=== PATIENT | male | born 1985 | race Hispanic/Latino ===

== ENCOUNTER 2019-11-26 15:57 | Emergency (ER) | payer BC ==
[2019-11-26] MEDS ORDERED: LORAZEPAM 0.5 MG TABLET ONE (17:29)
== END 2019-11-26 19:01 ==
LOC: EDH 15:57
DX: U07.1 COVID-19 (principal); F41.1 Generalized anxiety disorder

== ENCOUNTER → 2023-07-16 | Outpatient (CLI) | payer OTHER | END | disposition home or self-care (01) | LOC: OIH 12:47 | PROVIDERS: ATTEND Internal Medicine Cardiovascular Disease | DX: Z13.6 Encounter for screening for cardiovascular disorders (principal) | CPT/HCPCS: 75571 ==

== ENCOUNTER → 2023-08-14 | Outpatient (CLI) | payer BC ==
[2023-08-14 12:47] LABS: T4 (THYROXINE) 7.1 ug/dL (4.7-13.3); THYROID STIMULATING HORMONE 3.6 uIU/mL (0.36-3.74)
== END | disposition home or self-care (01) ==
LOC: LAB 08:21
PROVIDERS: ATTEND Internal Medicine Cardiovascular Disease
DX: E03.9 Hypothyroidism, unspecified (principal)
CPT/HCPCS: 36415; 84436; 84443; 84479